=== PATIENT | female | born 1955 | race Caucasian/White ===

== ENCOUNTER 2019-11-04 18:07 | Emergency (ER) | payer OTHER ==
[~2019-11-04] VITALS: Ht 152.4 cm; Wt 63.6 kg
[2019-11-04] VITALS (15 sets, daily range): BP systolic 124–231; BP diastolic 58–99
--- NOTE | 2019-11-04 18:12 | NUR ---
Pt brought per POV in WC by staff assist. entered ED requesting WC and assistance. Pt just started a severe headache holding her head tightly. Description: severe pain and feels like needing to have to hold head on. To ED 1 stat
--- NOTE | 2019-11-04 18:14 | ED Headache ---
General Stated Complaint: MAJOR HEADACHE Source: patient History of Present Illness Date Seen by Provider: Nov 04, 2019 Time Seen by Provider: 18:13 Initial Comments 63-year-old female presents with a headache and neck pain. Patient states that she was in the shower when she sudden onset of a headache and pain in her neck. Patient reports no previous history of headaches. Patient denies any fevers chills nausea vomiting vision changes. Patient is able to move her neck without any difficulty. Patient reports for the last couple weeks when she lays down she's gotten dizzy but otherwise no other symptoms. She takes hormone replacem ents for hysterectomy with otherwise no other medical conditions are medications per her. Allergies and Home Medications Allergies Coded Allergies: No Known Drug Allergies (Unverified , 11/04/19) Patient Home Medication List Home Medication List Reviewed: Yes Review of Systems Review of Systems Constitutional: No chills, No diaphoresis; dizziness; No fever Eyes: No Symptoms Reported Respiratory: no symptoms reported Cardiovascular: no symptoms reported Gastrointestinal: no symptoms reported Musculoskeletal: no symptoms reported Psychiatric/Neurological: See HPI Past Tvggwuq-Annoji-Rquerc Hx Past Med/Social Hx: Reviewed Nursing Past Med/Soc Hx Physical Exam Vital Signs Vital Signs - First Documented 11/04/19 18:12 Temp 35.6 Pulse 79 Resp 20 B/P (MAP) 211/99 (136) Pulse Ox 95 O2 Delivery Room Air Capillary Refill : Height, Weight, BMI Height: '" Weight: lbs. oz. kg; BMI Method: General Appearance: mild distress HEENT: PERRL/EOMI, normal ENT inspection Neck: non-tender, full range of motion Cardiovascular: normal peripheral pulses, regular rate, rhythm Respiratory: chest non-tender, lungs clear, normal breath sounds Gastrointestinal: non tender, soft Back: normal inspection Extremities: normal range of motion Psychiatric: alert, oriented x 3 Crainal Nerves: normal hearing, PERRL Motor/Sensory: no motor deficit, no sensory deficit, no pronator drift Skin: normal color, warm/dry Lymphatic: no adenopathy Progress/Results/Core Measures Results/Orders Lab Results Laboratory Tests Test 11/04/19 18:30 11/04/19 18:37 Range/Units White Blood Count 6.9 4.3-11.0 10^3/uL Red Blood Count 4.66 4.35-5.85 10^6/uL Hemoglobin 14.7 11.5-16.0 G/DL Hematocrit 41 35-52 % Mean Corpuscular Volume 88 80-99 FL Mean Corpuscular Hemoglobin 32 25-34 PG Mean Corpuscular Hemoglobin Concent 36 32-36 G/DL Red Cell Distribution Width 12.5 10.0-14.5 % Platelet Count 266 130-400 10^3/uL Mean Platelet Volume 10.2 7.4-10.4 FL Neutrophils (%) (Auto) 45 42-75 % Lymphocytes (%) (Auto) 42 12-44 % Monocytes (%) (Auto) 8 0-12 % Eosinophils (%) (Auto) 4 0-10 % Basophils (%) (Auto) 0 0-10 % Neutrophils # (Auto) 3.1 1.8-7.8 X 10^3 Lymphocytes # (Auto) 2.9 1.0-4.0 X 10^3 Monocytes # (Auto) 0.6 0.0-1.0 X 10^3 Eosinophils # (Auto) 0.3 0.0-0.3 10^3/uL Basophils # (Auto) 0.0 0.0-0.1 10^3/uL Prothrombin Time 12.9 12.2-14.7 SEC INR Comment 0.9 0.8-1.4 Activated Partial Thromboplast Time 22 L 24-35 SEC D-Dimer 0.29 0.00-0.49 UG/ML Sodium Level 141 135-145 MMOL/L Potassium Level 3.6 3.6-5.0 MMOL/L Chloride Level 99 98-107 MMOL/L Carbon Dioxide Level 29 21-32 MMOL/L Anion Gap 13 5-14 MMOL/L Blood Urea Nitrogen 18 7-18 MG/DL Creatinine 0.53 L 0.60-1.30 MG/DL Estimat Glomerular Filtration Rate > 60 BUN/Creatinine Ratio 34 Glucose Level 159 H 70-105 MG/DL Calcium Level 9.4 8.5-10.1 MG/DL Corrected Calcium 8.5-10.1 MG/DL Total Bilirubin 0.3 0.1-1.0 MG/DL Aspartate Amino Transf (AST/SGOT) 22 5-34 U/L Alanine Aminotransferase (ALT/SGPT) 18 0-55 U/L Alkaline Phosphatase 85 40-136 U/L Troponin I < 0.30 <0.30 NG/ML Total Protein 8.1 6.4-8.2 GM/DL Albumin 4.7 H 3.2-4.5 GM/DL Glucometer 147 H 70-110 MG/DL My Orders Orders - TIAVICK L DO Cbc With Automated Diff (11/04/19 18:14) Protime With Inr (11/04/19 18:14) Partial Thromboplastin Time (11/04/19 18:14) Comprehensive Metabolic Panel (11/04/19 18:14) Fibrin Degradation Products (11/04/19 18:14) Troponin I Fs (11/04/19 18:14) Ua Culture If Indicated (11/04/19 18:14) Chest 1 View Ap/Pa Only (11/04/19 18:14) Ekg Tracing (11/04/19:) Nothing By Mouth (11/05/19 Breakfast) Accucheck Stat ONCE (11/04/19 18:14) Ed Iv/Invasive Line Start (11/04/19 18:14) Vital Signs Stroke Patient Q15M (11/04/19 18:14) Ct Head/Neck Wo (11/04/19 18:14) Monitor-Rhythm Ecg Trace Only (11/04/19 18:14) Dysphagia Screening Tool (11/04/19 18:14) Lipid Panel (11/05/19 06:00) Ns (Ivpb) (Sodium Chloride 0.9%) (11/04/19 18:45) Nicardipine Iv For Drip (Cardene I.V. 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 Davis Transfer Facility: [facility] Method of Transfer: EMS VICK WEBER DO Nov 04, 2019 18:14
--- NOTE | 2019-11-04 18:15 | NUR ---
CT scanner warmed up begin transport to CT. Pt holding head crying out in severe pain. Posterior neck redness noted. Pt reported being in shower just [employer] when severe head pain began.
--- NOTE | 2019-11-04 18:25 | NUR ---
Patient has returned to room with monitoring resumed. Monitor remains SR. Have yet to perform NIH exam r/t urgency of multiple procedures and business of ER staff. Pt has been noted to be oriented with speech clear, ansers questions appropriate and can move all extremities. Pain is in posterior head/neck region. Pt has no injuries/trauma reported. confirms no trauma. He reports they have had an eventful day of being very busy all day. Denied medical health problems. Pt felt dizzy x 2 weeks. Pt holds head reporting yes to question of does this feel better and she reports feels like it needs to be held on to not fall off. Pt denies meds. Denies HTN. Not established with PCP in this area since moving here from [place]
--- NOTE | 2019-11-04 18:35 | NUR ---
Dr Escudero viewing CT images and speaking with nurse that patient will need a transfer but awaiting confirming Radiologist read and planning is started. Will use [facility] if not patient refusing that as facility for Neuro consult.
[2019-11-04] MEDS ORDERED: NS (IVPB) 250 ML ONE (18:37)
[2019-11-04] MEDS ORDERED: niCARdipine IV FOR DRIP 50 MG KIT ONE (18:37)
--- NOTE | 2019-11-04 18:38 | Diagnostic Imaging Report ---
INDICATION: Sudden onset of head and neck pain. FINDINGS: Upright chest shows normal heart size and vascularity. The lungs are clear. There is no effusion or pneumothorax. There is no bony abnormality. IMPRESSION: Normal chest. Dictated by: Dictated on workstation # [id number]
[2019-11-04 18:44] LABS: WHITE BLOOD COUNT 6.9 10^3/uL (4.3-11.0)
--- NOTE | 2019-11-04 18:44 | NUR ---
Call to activate [facility] for an emergency flight to a facilty ([facility]) for advanced care for Hypertensive crisis and head bleed per CT. Await call back from [place] to check weather
[2019-11-04 18:45] LABS: BASOPHILS % (AUTO) 0 % (0-10); EOSINOPHILS # (AUTO) 0.3 10^3/uL (0.0-0.3); EOSINOPHILS % (AUTO) 4 % (0-10); HEMATOCRIT 41 % (35-52); HEMOGLOBIN 14.7 G/DL (11.5-16.0); LYMPHOCYTES # (AUTO) 2.9 X 10^3 (1.0-4.0); LYMPHOCYTES % (AUTO) 42 % (12-44); MEAN CORPUSCULAR HEMOGLOBIN 32 PG (25-34); MEAN CORPUSCULAR HGB CONC 36 G/DL (32-36); MEAN CORPUSCULAR VOLUME 88 FL (80-99); MEAN PLATELET VOLUME 10.2 FL (7.4-10.4); MONOCYTES # (AUTO) 0.6 X 10^3 (0.0-1.0); MONOCYTES % (AUTO) 8 % (0-12); NEUTROPHILS # (AUTO) 3.1 X 10^3 (1.8-7.8); NEUTROPHILS % (AUTO) 45 % (42-75); PLATELET COUNT 266 10^3/uL (130-400); RED CELL DISTRIBUTION WIDTH 12.5 % (10.0-14.5)
[2019-11-04] MEDS ORDERED: SODIUM CHLORIDE IV SCH (18:45)
--- NOTE | 2019-11-04 18:48 | Diagnostic Imaging Report ---
PROCEDURE: CT head and neck without contrast. TECHNIQUE: Contiguous axial images were obtained from the skull base through the vertex. Noncontrast axial images were then obtained of the soft tissue of the neck. Auto Exposure Controls were utilized during the CT exam to meet ALARA standards for radiation dose reduction. INDICATION: Sudden onset of head and neck pain. FINDINGS: The ventricles are normal in size, shape, and position. There is no acute parenchymal hemorrhage, edema, or mass. There is subarachnoid hemorrhage in the pre-pontine cistern and ambient cisterns bilaterally. No focal extra-axial mass is seen. There is no subdural hemorrhage. There is normal height and alignment of the cervical vertebral bodies. Disc spaces are well maintained. There is no spinal canal encroachment. There is no fracture. There is subarachnoid hemorrhage extending from the basilar cisterns down to the C2 level. IMPRESSION: Subarachnoid hemorrhage which is likely from ruptured aneurysm. With fairly symmetrical bilateral distribution, this could be from a basilar tip aneurysm. No acute bony abnormality of the cervical spine is seen. This report was called to the [place] ED at 6:40 p.m. Dictated by: Dictated on workstation # [id number]
--- NOTE | 2019-11-04 18:55 | NUR ---
Dr Escudero spoke with Dr Brasher at [facility]. Acceptance rec'd and request for NIBP management. Goal <140/
--- NOTE | 2019-11-04 18:55 | NUR ---
Return call from [facility] and unable to fly north but can fly south. Notified Dr and the plan is ground crew EMS stat [facility].
--- NOTE | 2019-11-04 19:00 | NUR ---
NiCARDipine drip began per Covarrubias pump at physician request start at 5mg/hr. This was pulled and started with 2 RN check with Kourtney BARBOSA.
--- NOTE | 2019-11-04 19:00 | NUR ---
Paged [facility] Emergency to ER. Transfer to [facility].
--- NOTE | 2019-11-04 19:01 | NUR ---
Call to give report and "Olaf" at [facility] states accepted but no bed assignment. Politely request Olaf to make a "ghostbed" assignment as no one is flying and we are activating [facility] EMS ground crew out of [employer] [place]. Explained length of time transport increased now.
[2019-11-04 19:03] LABS: CARBON DIOXIDE 29 MMOL/L (21-32); CHLORIDE 99 MMOL/L (98-107); FIBRIN DEGRADATION PRODUCTS 0.29 UG/ML (0.00-0.49); INR 0.9 (0.8-1.4); POTASSIUM 3.6 MMOL/L (3.6-5.0); PROTHROMBIN TIME PATIENT 12.9 SEC (12.2-14.7); SODIUM 141 MMOL/L (135-145)
--- NOTE | 2019-11-04 19:03 | NUR ---
Return call from"Olaf" @ [facility]. Assignment room #[id number] is received and transferred to Stacy BARBOSA for report.
[2019-11-04 19:04] LABS: ALANINE AMINOTRANSFERASE 18 U/L (0-55); ALBUMIN 4.7 GM/DL (3.2-4.5); ALKALINE PHOSPHATASE 85 U/L (40-136); BILIRUBIN,TOTAL 0.3 MG/DL (0.1-1.0); BUN/CREATININE RATIO 34; CALCIUM 9.4 MG/DL (8.5-10.1); CREATININE SERUM 0.53 MG/DL (0.60-1.30); GFR ESTIMATED > 60; GLUCOSE 159 MG/DL (70-105); TOTAL PROTEIN 8.1 GM/DL (6.4-8.2)
--- NOTE | 2019-11-04 19:08 | NUR ---
[facility] EMS being paged to [facility] for foot infection. This EMS crew responding to that, other EMS crew out of critical access hospital.
--- NOTE | 2019-11-04 19:09 | NUR ---
Continue to await EMS arrival.
--- NOTE | 2019-11-04 19:27 | NUR ---
Currently pending EMS to obtain a rehab consultant for a truck.
--- NOTE | 2019-11-04 19:33 | NUR ---
Decision to put SAUSAGE MACHINE OPERATORCHELSEY Segovia on EMS truck to manage NiCARDipine drip.
[2019-11-04 19:35] LABS: BILIRUBIN,URINE NEGATIVE (NEGATIVE); CLARITY,URINE CLEAR; COLOR,URINE YELLOW; GLUCOSE, URINE (UA) TRACE (NEGATIVE); KETONES,URINE NEGATIVE (NEGATIVE); LEUKOCYTE ESTERASE ,URINE NEGATIVE (NEGATIVE); NITRITE,URINE NEGATIVE (NEGATIVE); PROTEIN,URINE 2+ (NEGATIVE); SQUAMOUS EPITHELIAL CELL,UR 0-2 /HPF
--- NOTE | 2019-11-04 19:55 | NUR ---
Remained NPO during stay and is not passed on a dysphagia screen as further Neuro evaluation required and pt left NPO. Pt is not requiring suctioning or is not drooling or coughing.
--- NOTE | 2019-11-04 19:55 | NUR ---
Patient departing at this time on NiCARDipine drip at 2.5 mg/hr as pt had 1950 NIBP 126/63 and reduced from 5 mg/hr. Juliette BARBOSA taking pt to [facility] with [facility] COIN MACHINE COLLECTOR/EMT crew. Pt reporting headache improvement slight but continued into neck. Vital parameter >120/ and <140/ while on drip.
--- NOTE | 2019-11-04 23:42 | NUR ---
This continuity writer went with [facility] to take pt to [facility]. Pt was on a Cardene drip at 2.5mg/hr with an initial bp of 165/87. At 2029 the drip was increased to 5mg/hr due to her bp running 171/75. The drip was increased again at 2044 to 7.5mg/hr with a bp of 172/60. Report was given to TOP WADDY at 2109 and pt's bp had decreased to 139/87. Pt remained alert and oriented during the transfer.
--- OUTSIDE RECORDS SUMMARY | 2019-11-06 14:48 | XMS REPORT | Continuity of Care Document ---
Demographics Preferred Language Unknown Marital Status Unknown Temple Affiliation Unknown Race Unknown Ethnic Group Unknown Author Organization Unknown Address Unknown Phone Unavailable Allergies There is no data. Medications There is no data. Problems There is no data. Procedures There is no data. Results Test Result Range Complete blood count (CBC) with automate d white blood cell (WBC) differential - 11/04/19 18:30 Blood leukocytes automated count (number/volume) 6.9 10*3/uL 4.3-11.0 Blood erythrocytes automated count (number/volume) 4.66 10*6/uL 4.35-5.85 Venous blood hemoglobin measurement (mass/volume) 14.7 g/dL 11.5-16.0 Blood hematocrit (volume fraction) 41 % 35-52 Automated erythrocyte mean corpuscular volume 88 [ foz_us] 80-99 Automated erythrocyte mean corpuscular h emoglobin (mass per erythrocyte) 32 pg 25-34 Automated erythrocyte mean corpuscular h emoglobin concentration measurement (mass/volume) 36 g/dL 32-36 Automated erythrocyte distribution width ratio 12. 5 % 10.0- 14.5 Automated blood platelet count (count/volume) 266 10*3/uL 130-400 Automated blood platelet mean volume measurement 10.2 [foz_us] 7.4-10.4 Automated blood neutrophils/100 leukocytes 45 % 42-75 Automated blood lymphocytes/100 leukocytes 42 % 12-44 Blood monocytes/100 leukocytes 8 % 0-12 Automated blood eosinophils/100 leukocytes 4 % 0-10 Automated blood basophils/100 leukocytes 0 % 0-10 Blood neutrophils automated count (number/volume) 3.1 10*3 1.8-7.8 Blood lymphocytes automated count (number/volume) 2.9 10*3 1.0-4.0 Blood monocytes automated count (number/volume) 0. 6 10*3 0.0-1.0 Automated eosinophil count 0.3 10*3/uL 0 .0-0.3 Automated blood basophil count (count/volume) 0.0 10*3/uL 0.0-0.1 PT panel in platelet poor plasma by coag ulation assay - 11/04/19 18:30 Prothrombin time (PT) in platelet poor plasma by coagu lation assay 12.9 s 12.2-14.7 INR in platelet poor plasma or blood by coagulation as say 0.9 0.8-1.4 Activated partial thromboplastin time (a PTT) in platelet poor plasma bycoagulation assay - 11/04/19 18:30 Activated partial thromboplastin time (a PTT) in platelet poor plasma bycoagulation assay 22 s 24-35 Fibrin D-dimer FEU measurement in platel et poor plasma (mass/volume) - 11/04/19 18:30 Fibrin D-dimer FEU measurement in platelet poor plasma (mass/volume) 0.29 ug/mL 0.00-0.49 Comprehensive metabolic panel - 11/04/19 18:30 Serum or plasma sodium measurement (moles/volume) 141 mmol/L 135-145 Serum or plasma potassium measurement (moles/volume) 3.6 mmol/L 3.6-5.0 Serum or plasma chloride measurement (moles/volume) 99 mmol/L 98-107 Carbon dioxide 29 mmol/L 21-32 Serum or plasma anion gap determination (moles/volume) 13 mmol/L 5-14 Serum or plasma urea nitrogen measurement (mass/volume ) 18 mg/dL 7-18 Serum or plasma creatinine measurement (mass/volume) 0.53 mg/dL 0.60-1.30 Serum or plasma urea nitrogen/creatinine mass ratio 34 NRG Serum or plasma creatinine measurement w ith calculation of estimated glomerular filtration rate > NRG Serum or plasma glucose measurement (mass/volume) 159 mg/dL 70-105 Serum or plasma calcium measurement (mass/volume) 9.4 mg/dL 8.5-10.1 Serum or plasma total bilirubin measurement (mass/volu me) 0.3 mg/dL 0.1-1.0 Serum or plasma alkaline phosphatase teresita surement (enzymatic activity/volume) 85 U/L 40-136 Serum or plasma aspartate aminotransfera se measurement (enzymatic activity/volume) 22 U/L 5-34 Serum or plasma alanine aminotransferase measurement (enzymatic activity/volume) 18 U/L 0-55 Serum or plasma protein measurement (mass/volume) 8.1 g/dL 6.4-8.2 Serum or plasma albumin measurement (mass/volume) 4.7 g/dL 3.2-4.5 TROPONIN I FS - 11/04/19 18:30 TROPONIN I FS < 0.30 <0.30 Capillary blood glucose measurement by g lucometer (mass/volume) - 11/04/19 18:37 Capillary blood glucose measurement by glucometer (mas s/volume) 147 mg/dL 70-110 Complete urinalysis with reflex to cultu re - 11/04/19 19:25 Urine color determination YELLOW NRG Urine clarity determination CLEAR NR G Urine pH measurement by test strip 8.0 5-9 Specific gravity of urine by test strip 1.020 1.016-1.022 Urine protein assay by test strip, semi-quantitative 2+ NEGATIVE Urine glucose detection by automated test strip TR BEVERLY NEGATIVE Erythrocytes detection in urine sediment by light micr oscopy NEGATIVE NEGATIVE Urine ketones detection by automated test strip NE GATIVE NEGATIVE Urine nitrite detection by test strip NEGATIVE NEGATIVE Urine total bilirubin detection by test strip NEGA TIVE NEGATIVE Urine urobilinogen measurement by automated test strip (mass/volume) 0.2 mg/dL < = 1.0 Urine leukocyte esterase detection by dipstick NEG ATIVE NEGATIVE Automated urine sediment erythrocyte cou nt by microscopy (number/high power field) NONE NRG Automated urine sediment leukocyte count by microscopy (number/high power field) NONE NRG Bacteria detection in urine sediment by light microsco py NONE NRG Squamous epithelial cells detection in u rine sediment by light microscopy 0-2 NRG Crystals detection in urine sediment by light microsco py NONE NRG Casts detection in urine sediment by light microscopy NONE NRG Mucus detection in urine sediment by light microscopy NEGATIVE NRG Complete urinalysis with reflex to culture NO NRG Encounters ACCT No. Visit Date/Time Discharge Status Pt. Type Provider Facility Loc./Unit Complaint [id number] 11/04/2019 18:45:00 Document Registration
== END 2019-11-04 19:55 | disposition short-term general hospital (02) ==
LOC: ER FS 18:09
DX: I60.8 Other nontraumatic subarachnoid hemorrhage (principal); I72.9 Aneurysm of unspecified site
CPT/HCPCS: 36415; 70450; 70490; 71045; 80053; 81000; 82962; 84484; 85025; 85379; 85610; 85730; 93005; 93041; 99291; 99292